=== PATIENT | female | born 1945 | race Caucasian/White ===

== ENCOUNTER 2017-06-08 12:54 | Emergency (ER) | payer MEDICARE, OTHER ==
[2017-06-08] MEDS: KETOROLAC 15 MG INJ IV (15:20)
[2017-06-08] MEDS: ONDANSETRON 4 MG INJ IV (15:20)
[2017-06-08] MEDS: SOD CHLORIDE 0.9% 500 ML IV (15:21)
[2017-06-08 15:35] LABS: ADD MAN DIFF? NO
[2017-06-08 15:41] LABS: WHITE BLOOD COUNT 8.4 10^3/ul (4.8-10.8)
[2017-06-08 15:41] LABS: BASOPHILS % 0.4 % (0.0-2.0); EOSINOPHILS # 0.2 10^3/ul (0.0-0.5); EOSINOPHILS % 2.1 % (0.0-7.0); HEMATOCRIT 35.3 % (37.0-47.0); HEMOGLOBIN 11.6 g/dl (12.0-16.0); LYMPHOCYTES # 2.9 10^3/ul (0.8-2.9); LYMPHOCYTES % 34.2 % (15.0-51.0); MEAN CORPUSCULAR HEMOGLOBIN 28.9 pg (29.0-33.0); MEAN CORPUSCULAR HGB CONC 32.9 g/dl (32.0-37.0); MEAN CORPUSCULAR VOLUME 87.8 fl (82.0-101.0); MEAN PLATELET VOLUME 9.4 fl (7.4-10.4); MONOCYTE # 0.7 10^3/ul (0.3-0.9); MONOCYTES % 8.8 % (0.0-11.0); NEUTROPHIL # 4.6 10^3/ul (1.6-7.5); NEUTROPHILS % 54.1 % (39.0-77.0); PLATELET COUNT 317 10^3/UL (140-415); RED BLOOD COUNT 4.02 10^6/ul (4.20-5.40); RED CELL DISTRIBUTION WIDTH 13.3 % (11.5-14.5)
[2017-06-08 15:46] LABS: ADD UMIC YES; UR ASCORBIC ACID NEGATIVE (NEGATIVE); UR BACTERIA FEW /HPF (NONE SEEN); UR BILIRUBIN (Dip) NEGATIVE (NEGATIVE); UR BLOOD (Dip) NEGATIVE (NEGATIVE); UR CLARITY SLIGHTLY CLOUDY (CLEAR); UR COLOR YELLOW (YELLOW); UR GLUCOSE (Dip) 3+ mg/dL (NEGATIVE); UR KETONES (Dip) NEGATIVE (NEGATIVE); UR LEUKOCYTE ESTERASE (Dip) 3+ Leu/ul (NEGATIVE); UR NITRITE (Dip) NEGATIVE (NEGATIVE); UR RBC 2 /HPF (0-5); UR SPECIFIC GRAVITY (Dip) 1.021 (1.003-1.030); UR SQUAMOUS EPITHELIAL CELL FEW /HPF (FEW); UR TOTAL PROTEIN (Dip) NEGATIVE (NEGATIVE); UR UROBILINOGEN (Dip) NEGATIVE (NEGATIVE); UR WBC 42 /HPF (0-5)
[2017-06-08 16:10] LABS: ALANINE AMINOTRANSFERASE 28 IU/L (13-69); ALBUMIN 3.6 g/dl (3.3-4.9); ALBUMIN/GLOBULIN RATIO 1.02; ALKALINE PHOSPHATASE 95 IU/L (42-121); ANION GAP 12 (8-16); ASPARTATE AMINO TRANSFERASE 24 IU/L (15-46); BILIRUBIN,INDIRECT 0.1 mg/dl (0-1.1); BILIRUBIN,TOTAL 0.1 mg/dl (0.2-1.3); BLOOD UREA NITROGEN 27 mg/dl (7-20); CALCIUM 9.5 mg/dl (8.4-10.2); CARBON DIOXIDE 30 mmol/L (21-31); CHLORIDE 101 mmol/L (97-110); CREATININE 0.61 mg/dl (0.44-1.00); GLUCOSE 209 mg/dl (70-220); LIPASE 252 U/L (23-300); POTASSIUM 4.2 mmol/L (3.5-5.1); SODIUM 139 mmol/L (135-144); TOTAL PROTEIN 7.1 g/dl (6.1-8.1)
== END 2017-06-08 17:48 | disposition home or self-care (01) ==
LOC: E/R 12:54
DX: N30.00 Acute cystitis without hematuria (principal); E03.9 Hypothyroidism, unspecified; E11.9 Type 2 diabetes mellitus without complications; Z79.82 Long term (current) use of aspirin; Z79.84 Long term (current) use of oral hypoglycemic drugs; Z96.641 Presence of right artificial hip joint
CPT/HCPCS: 36415; 74176; 80053; 81001; 83690; 85025; 96374; 96375; 99285-25

== ENCOUNTER 2017-06-11 18:55 | Emergency (ER) | payer MEDICARE, OTHER ==
[2017-06-11 21:13] LABS: ADD MAN DIFF? NO
[2017-06-11 21:17] LABS: BASOPHILS % 0.4 % (0.0-2.0); EOSINOPHILS # 0.3 10^3/ul (0.0-0.5); EOSINOPHILS % 3.3 % (0.0-7.0); HEMATOCRIT 35.5 % (37.0-47.0); HEMOGLOBIN 11.6 g/dl (12.0-16.0); LYMPHOCYTES # 2.9 10^3/ul (0.8-2.9); LYMPHOCYTES % 35.4 % (15.0-51.0); MEAN CORPUSCULAR HEMOGLOBIN 28.9 pg (29.0-33.0); MEAN CORPUSCULAR HGB CONC 32.7 g/dl (32.0-37.0); MEAN CORPUSCULAR VOLUME 88.3 fl (82.0-101.0); MEAN PLATELET VOLUME 9.6 fl (7.4-10.4); MONOCYTE # 0.8 10^3/ul (0.3-0.9); MONOCYTES % 9.3 % (0.0-11.0); NEUTROPHIL # 4.2 10^3/ul (1.6-7.5); NEUTROPHILS % 51.4 % (39.0-77.0); PLATELET COUNT 327 10^3/UL (140-415); RED BLOOD COUNT 4.02 10^6/ul (4.20-5.40); RED CELL DISTRIBUTION WIDTH 13.2 % (11.5-14.5)
[2017-06-11 21:17] LABS: WHITE BLOOD COUNT 8.1 10^3/ul (4.8-10.8)
[2017-06-11 21:32] LABS: INR 0.95; PROTIME 12.8 Sec (11.9-14.9)
[2017-06-11 21:33] LABS: PARTIAL THROMBOPLASTIN TIME 27.6 Sec (25.0-35.0)
[2017-06-11 21:36] LABS: ALANINE AMINOTRANSFERASE 27 IU/L (13-69); ALBUMIN 3.6 g/dl (3.3-4.9); ALBUMIN/GLOBULIN RATIO 0.97; ALKALINE PHOSPHATASE 99 IU/L (42-121); ANION GAP 11 (8-16); ASPARTATE AMINO TRANSFERASE 22 IU/L (15-46); BLOOD UREA NITROGEN 25 mg/dl (7-20); CALCIUM 9.4 mg/dl (8.4-10.2); CARBON DIOXIDE 33 mmol/L (21-31); CHLORIDE 103 mmol/L (97-110); GLUCOSE 267 mg/dl (70-220); LIPASE 168 U/L (23-300); POTASSIUM 3.6 mmol/L (3.5-5.1); SODIUM 143 mmol/L (135-144); TOTAL PROTEIN 7.3 g/dl (6.1-8.1)
[2017-06-11] MEDS: ASPIRIN 325 MG TAB PO (22:09)
[2017-06-11] MEDS: SOD CHLORIDE 0.9% 1,000 ML IV (22:09)
[2017-06-11 22:16] LABS: B-TYPE NATRIURETIC PEPTIDE 61 PG/ML (0-125); TROPONIN-I < 0.012 ng/ml (0.00-0.12)
[2017-06-11] MEDS: VANCOMYCIN 1.25 GM in SOD CHLORIDE 0.9% 250 ML IVPB (23:20)
[2017-06-12] MEDS: KETOROLAC 15 MG INJ IV (00:13)
== END 2017-06-12 02:28 | disposition home or self-care (01) ==
LOC: E/R 06-12 02:28
DX: L03.115 Cellulitis of right lower limb (principal); L03.116 Cellulitis of left lower limb; E11.65 Type 2 diabetes mellitus with hyperglycemia; D64.9 Anemia, unspecified; E03.9 Hypothyroidism, unspecified; R07.9 Chest pain, unspecified; Z79.84 Long term (current) use of oral hypoglycemic drugs; Z79.82 Long term (current) use of aspirin; Z96.641 Presence of right artificial hip joint
CPT/HCPCS: 36415; 71045; 80053; 83690; 83880; 84484; 85025; 85610; 85730; 87040; 93005; 93970; 96374; 96375; 99285-25

== ENCOUNTER 2018-05-03 14:19 | Inpatient (IN) | payer MEDICARE, OTHER ==
[2018-05-03] MEDS: ONDANSETRON 4 MG INJ IV ×2 (15:57→19:40)
[2018-05-03] MEDS: HYDROmorphONE 2 MG/ML SYG IV (15:57)
[2018-05-03] MEDS: morphine 4 MG/ML VIAL IV (19:40)
[2018-05-03] MEDS ORDERED: ACETAMINOPHEN 325 MG TAB PO ×2 (21:00→23:30)
[2018-05-03] MEDS ORDERED: ONDANSETRON 4 MG INJ IV ×2 (21:00→23:30)
[2018-05-03 21:09] LABS: ADD MAN DIFF? NO
[2018-05-03 21:48] LABS: ANION GAP 11 (5-13); BLOOD UREA NITROGEN 28 mg/dl (7-20); CARBON DIOXIDE 29 mmol/L (21-31); CHLORIDE 99 mmol/L (97-110); CREATININE 0.68 mg/dl (0.44-1.00); GLUCOSE 250 mg/dl (70-220); POTASSIUM 3.8 mmol/L (3.5-5.1); SODIUM 139 mmol/L (135-144)
[2018-05-03 21:50] LABS: BASOPHILS % 0.3 % (0.0-2.0); EOSINOPHILS % 0.1 % (0.0-7.0); HEMOGLOBIN 10.8 g/dl (12.0-16.0); LYMPHOCYTES # 1.5 10^3/ul (0.8-2.9); MEAN CORPUSCULAR HEMOGLOBIN 28.6 pg (29.0-33.0); MEAN CORPUSCULAR HGB CONC 31.8 g/dl (32.0-37.0); MEAN CORPUSCULAR VOLUME 90.2 fl (82.0-101.0); MEAN PLATELET VOLUME 9.6 fl (7.4-10.4); MONOCYTE # 1.2 10^3/ul (0.3-0.9); NEUTROPHILS % 74.2 % (39.0-77.0); PLATELET COUNT 261 10^3/UL (140-415); RED BLOOD COUNT 3.77 10^6/ul (4.20-5.40); RED CELL DISTRIBUTION WIDTH 13.4 % (11.5-14.5)
[2018-05-03 21:50] LABS: WHITE BLOOD COUNT 10.8 10^3/ul (4.8-10.8)
[2018-05-03] MEDS ORDERED: HYDROCODONE/APAP (5/325) TAB PO (23:30)
[2018-05-03] MEDS ORDERED: GLUCOSE GEL 15 GRAM TUBE BUCCAL (23:45)
[2018-05-03] MEDS ORDERED: GLUCAGON 1 MG INJ IM (23:45)
[2018-05-03] MEDS ORDERED: DEXTROSE 50% 50 ML SYRINGE IV ×2 (23:45)
[2018-05-03] MEDS ORDERED: GLUCOSE GEL 15 GRAM TUBE PO ×2 (23:45)
[2018-05-04] MEDS: SOD CHLORIDE 0.9% 1,000 ML IV (00:19)
[2018-05-04] MEDS: KETOROLAC 30 MG INJ IV ×4 (00:20→21:22)
[2018-05-04] MEDS: ACCU-CHEK XX (02:00)
[2018-05-04] MEDS ORDERED: PANTOPRAZOLE 40 MG INJ IV (06:00)
[2018-05-04 07:29] LABS: HEMOGLOBIN A1C 7.1 % (0-5.9)
[2018-05-04] MEDS: FAMOTIDINE 20 MG INJ IV (08:23)
[2018-05-04] MEDS: INSULIN ASPART [NOVOLOG] 3 ML PEN SC ×4 (08:32→20:35)
[2018-05-04] MEDS ORDERED: morphine 2 MG INJ IV (13:30)
[2018-05-04] MEDS: ALBUTEROL/IPRATROPIUM (NEB) 3 ML AMP HHN ×2 (14:00→21:02)
[2018-05-04] MEDS: CYANOCOBALAMIN 500 MCG TAB PO (15:18)
[2018-05-04] MEDS: FUROSEMIDE 20 MG TAB PO (15:19)
[2018-05-04] MEDS: MULTIVITAMINS THERAPEUTIC TAB PO (15:19)
[2018-05-04] MEDS: METHOCARBAMOL 500 MG TAB PO ×2 (15:19→21:30)
[2018-05-04] MEDS: FOLIC ACID 0.4 MG TAB PO (15:19)
[2018-05-04] MEDS: CHOLECALCIFEROL 1,000 UNIT TAB PO (15:19)
[2018-05-04] MEDS: ASPIRIN (EC) 81 MG TAB PO (15:19)
[2018-05-04] MEDS: AZITHROMYCIN 500 MG TAB PO (15:19)
[2018-05-04] MEDS: traMADol 50 MG TAB PO (17:36)
[2018-05-05] MEDS: ACCU-CHEK XX (01:42)
[2018-05-05] MEDS: ALBUTEROL/IPRATROPIUM (NEB) 3 ML AMP HHN ×4 (01:44→19:41)
[2018-05-05] MEDS: METHOCARBAMOL 500 MG TAB PO ×3 (05:45→20:52)
[2018-05-05] MEDS: KETOROLAC 30 MG INJ IV ×2 (05:49→13:24)
[2018-05-05] MEDS: traMADol 50 MG TAB PO ×5 (06:00→23:39)
[2018-05-05] MEDS: LEVOTHYROXINE 88 MCG TAB PO (06:06)
[2018-05-05] MEDS: INSULIN ASPART [NOVOLOG] 3 ML PEN SC ×4 (08:35→20:59)
[2018-05-05] MEDS: ASPIRIN (EC) 81 MG TAB PO (08:36)
[2018-05-05] MEDS: FUROSEMIDE 20 MG TAB PO (08:36)
[2018-05-05] MEDS: MULTIVITAMINS THERAPEUTIC TAB PO (08:36)
[2018-05-05] MEDS: FOLIC ACID 0.4 MG TAB PO (08:36)
[2018-05-05] MEDS: CHOLECALCIFEROL 1,000 UNIT TAB PO (08:36)
[2018-05-05] MEDS: CYANOCOBALAMIN 500 MCG TAB PO (08:37)
[2018-05-05] MEDS: FAMOTIDINE 20 MG INJ IV (08:37)
[2018-05-05] MEDS: PROMETHAZINE/CODEINE 5ML CUP PO (20:52)
[2018-05-06] MEDS: morphine 2 MG INJ IV (01:59)
[2018-05-06] MEDS: ALBUTEROL/IPRATROPIUM (NEB) 3 ML AMP HHN ×3 (02:00→14:00)
[2018-05-06] MEDS: ACCU-CHEK XX (02:00)
[2018-05-06 06:21] LABS: MAGNESIUM 2.3 mg/dl (1.7-2.5)
[2018-05-06 06:21] LABS: PHOSPHORUS 4.4 mg/dl (2.5-4.9)
[2018-05-06 06:27] LABS: ANION GAP 6 (5-13); BLOOD UREA NITROGEN 32 mg/dl (7-20); CALCIUM 8.6 mg/dl (8.4-10.2); CARBON DIOXIDE 29 mmol/L (21-31); CHLORIDE 107 mmol/L (97-110); CREATININE 0.78 mg/dl (0.44-1.00); GLUCOSE 134 mg/dl (70-220); POTASSIUM 4.2 mmol/L (3.5-5.1); SODIUM 142 mmol/L (135-144)
[2018-05-06] MEDS: METHOCARBAMOL 500 MG TAB PO ×2 (06:31→13:50)
[2018-05-06] MEDS: traMADol 50 MG TAB PO ×2 (06:31→12:00)
[2018-05-06] MEDS: LEVOTHYROXINE 88 MCG TAB PO (06:31)
[2018-05-06] MEDS: INSULIN ASPART [NOVOLOG] 3 ML PEN SC ×2 (08:31→12:00)
[2018-05-06] MEDS: CYANOCOBALAMIN 500 MCG TAB PO (08:35)
[2018-05-06] MEDS: FAMOTIDINE 20 MG INJ IV (08:35)
[2018-05-06] MEDS: CHOLECALCIFEROL 1,000 UNIT TAB PO (08:35)
[2018-05-06] MEDS: FOLIC ACID 0.4 MG TAB PO (08:35)
[2018-05-06] MEDS: FUROSEMIDE 20 MG TAB PO (08:36)
[2018-05-06] MEDS: ASPIRIN (EC) 81 MG TAB PO (08:36)
[2018-05-06] MEDS: KETOROLAC 30 MG INJ IV (08:48)
[2018-05-06] MEDS: MULTIVITAMINS THERAPEUTIC TAB PO (09:26)
[2018-05-07] MEDS ORDERED: FAMOTIDINE 20 MG TAB PO (09:00)
== END 2018-05-06 15:20 | DRG 552 ==
LOC: E/R 14:19 → 2NE 20:35
DX: M48.02 Spinal stenosis, cervical region (principal); M48.04 Spinal stenosis, thoracic region; E86.0 Dehydration; Z96.641 Presence of right artificial hip joint; G47.33 Obstructive sleep apnea (adult) (pediatric); F32.9 Major depressive disorder, single episode, unspecified; F41.9 Anxiety disorder, unspecified; E78.5 Hyperlipidemia, unspecified; E03.9 Hypothyroidism, unspecified; M79.7 Fibromyalgia; E11.9 Type 2 diabetes mellitus without complications; J40 Bronchitis, not specified as acute or chronic; I10 Essential (primary) hypertension; M54.30 Sciatica, unspecified side; M19.90 Unspecified osteoarthritis, unspecified site; M43.10 Spondylolisthesis, site unspecified; Z79.4 Long term (current) use of insulin; Z79.84 Long term (current) use of oral hypoglycemic drugs; Z79.82 Long term (current) use of aspirin
CPT/HCPCS: 72040; 72072; 72125; 72128; 72141; 72146; 80048; 82962; 83036; 83735; 84100; 85025; 94640; 94664; 96374; 96375; 96376; 97110; 97116; 97162; 97165; 97530; 99217; 99285-25

== ENCOUNTER 2018-05-06 15:31 | Inpatient (IN) | payer MEDICARE, OTHER ==
[2018-05-06] MEDS ORDERED: PENDING SANTYL ORDER FOR WOUND CARE XX (16:00)
[2018-05-06] MEDS ORDERED: LACTULOSE 30ML CUP PO (16:30)
[2018-05-06] MEDS ORDERED: BISACODYL 10 MG SUPP PR (16:30)
[2018-05-06] MEDS ORDERED: ACETAMINOPHEN 325 MG TAB PO ×2 (16:30→19:30)
[2018-05-06] MEDS ORDERED: MAGNESIUM HYDROXIDE 30ML CUP PO (16:30)
[2018-05-06] MEDS ORDERED: ONDANSETRON 4 MG INJ IV (19:30)
[2018-05-06] MEDS ORDERED: morphine 2 MG INJ IV (19:30)
[2018-05-06] MEDS: traMADol 50 MG TAB PO (19:30)
[2018-05-06] MEDS: ALBUTEROL/IPRATROPIUM (NEB) 3 ML AMP HHN (20:00)
[2018-05-06] MEDS ORDERED: ZOLPIDEM 5 MG TAB PO (20:00)
[2018-05-06] MEDS ORDERED: DEXTROSE 50% 50 ML SYRINGE IV ×2 (20:00)
[2018-05-06] MEDS ORDERED: GLUCAGON 1 MG INJ IM (20:00)
[2018-05-06] MEDS ORDERED: GLUCOSE GEL 15 GRAM TUBE BUCCAL (20:00)
[2018-05-06] MEDS ORDERED: GLUCOSE GEL 15 GRAM TUBE PO ×2 (20:00)
[2018-05-06] MEDS ORDERED: ACETAMINOPHEN 325/HYDROC 7.5 15 ML CUP PO (20:00)
[2018-05-06] MEDS: INSULIN ASPART [NOVOLOG] 3 ML PEN SC (21:00)
[2018-05-06] MEDS: SENNA TAB PO (21:00)
[2018-05-06] MEDS: DOCUSATE SODIUM 100 MG CAP PO (21:00)
[2018-05-06] MEDS: KETOROLAC 30 MG INJ IV (22:23)
[2018-05-06] MEDS: METHOCARBAMOL 500 MG TAB PO (22:27)
[2018-05-07 00:17] LABS: ADD UMIC YES; UR ASCORBIC ACID NEGATIVE (NEGATIVE); UR BACTERIA FEW /HPF (NONE SEEN); UR BILIRUBIN (Dip) NEGATIVE (NEGATIVE); UR BLOOD (Dip) NEGATIVE (NEGATIVE); UR CALCIUM OXALATE CRYSTAL FEW /HPF (NONE SEEN); UR CLARITY CLOUDY (CLEAR); UR COLOR AMBER (YELLOW); UR GLUCOSE (Dip) NEGATIVE (NEGATIVE); UR KETONES (Dip) NEGATIVE (NEGATIVE); UR LEUKOCYTE ESTERASE (Dip) 3+ Leu/ul (NEGATIVE); UR MUCUS MODERATE /HPF (NONE SEEN); UR NITRITE (Dip) NEGATIVE (NEGATIVE); UR NONSQUAMOUS EPITHELIAL CELL 1 /HPF (NONE SEEN); UR RBC 7 /HPF (0-5); UR SPECIFIC GRAVITY (Dip) 1.027 (1.003-1.030); UR SQUAMOUS EPITHELIAL CELL MANY /HPF (FEW); UR TOTAL PROTEIN (Dip) NEGATIVE (NEGATIVE); UR UROBILINOGEN (Dip) NEGATIVE (NEGATIVE); UR WBC 57 /HPF (0-5)
[2018-05-07] MEDS: ALBUTEROL/IPRATROPIUM (NEB) 3 ML AMP HHN ×5 (01:42→19:43)
[2018-05-07] MEDS: ACCU-CHEK XX (02:00)
[2018-05-07] MEDS: METHOCARBAMOL 500 MG TAB PO ×3 (05:49→21:07)
[2018-05-07] MEDS: traMADol 50 MG TAB PO ×4 (05:50→17:33)
[2018-05-07 07:08] LABS: ADD MAN DIFF? NO
[2018-05-07 07:16] LABS: BASOPHILS % 0.6 % (0.0-2.0); EOSINOPHILS # 0.4 10^3/ul (0.0-0.5); EOSINOPHILS % 6.7 % (0.0-7.0); HEMATOCRIT 33.7 % (37.0-47.0); HEMOGLOBIN 10.8 g/dl (12.0-16.0); LYMPHOCYTES # 1.9 10^3/ul (0.8-2.9); LYMPHOCYTES % 34.7 % (15.0-51.0); MEAN CORPUSCULAR HEMOGLOBIN 28.6 pg (29.0-33.0); MEAN CORPUSCULAR VOLUME 89.2 fl (82.0-101.0); MEAN PLATELET VOLUME 9.4 fl (7.4-10.4); MONOCYTE # 0.4 10^3/ul (0.3-0.9); MONOCYTES % 8.2 % (0.0-11.0); NEUTROPHIL # 2.7 10^3/ul (1.6-7.5); NEUTROPHILS % 49.4 % (39.0-77.0); PLATELET COUNT 298 10^3/UL (140-415); RED BLOOD COUNT 3.78 10^6/ul (4.20-5.40); RED CELL DISTRIBUTION WIDTH 13.2 % (11.5-14.5)
[2018-05-07 07:16] LABS: WHITE BLOOD COUNT 5.4 10^3/ul (4.8-10.8)
[2018-05-07 07:49] LABS: ALANINE AMINOTRANSFERASE 15 IU/L (13-69); ALBUMIN 3.2 g/dl (3.3-4.9); ALBUMIN/GLOBULIN RATIO 0.96; ALKALINE PHOSPHATASE 85 IU/L (42-121); ANION GAP 5 (5-13); ASPARTATE AMINO TRANSFERASE 19 IU/L (15-46); BILIRUBIN,INDIRECT 0.3 mg/dl (0-1.1); BILIRUBIN,TOTAL 0.3 mg/dl (0.2-1.3); BLOOD UREA NITROGEN 33 mg/dl (7-20); CALCIUM 8.8 mg/dl (8.4-10.2); CARBON DIOXIDE 27 mmol/L (21-31); CHLORIDE 108 mmol/L (97-110); CREATININE 0.68 mg/dl (0.44-1.00); GLUCOSE 130 mg/dl (70-220); POTASSIUM 4.4 mmol/L (3.5-5.1); SODIUM 140 mmol/L (135-144); TOTAL PROTEIN 6.5 g/dl (6.1-8.1)
[2018-05-07] MEDS: INSULIN ASPART [NOVOLOG] 3 ML PEN SC ×4 (08:29→21:00)
[2018-05-07] MEDS: CHOLECALCIFEROL 1,000 UNIT TAB PO (08:52)
[2018-05-07] MEDS: FOLIC ACID 0.4 MG TAB PO (08:53)
[2018-05-07] MEDS: HYDROCHLOROTHIAZIDE 25 MG TAB PO (08:53)
[2018-05-07] MEDS: CYANOCOBALAMIN 500 MCG TAB PO (08:54)
[2018-05-07] MEDS: FUROSEMIDE 20 MG TAB PO (08:54)
[2018-05-07] MEDS: DOCUSATE SODIUM 100 MG CAP PO ×2 (08:54→20:22)
[2018-05-07] MEDS: MULTIVITAMINS THERAPEUTIC TAB PO (08:54)
[2018-05-07] MEDS: ASPIRIN (EC) 81 MG TAB PO (08:54)
[2018-05-07] MEDS: LOSARTAN 50 MG TAB PO (08:57)
[2018-05-07] MEDS: FAMOTIDINE 20 MG INJ IV (08:58)
[2018-05-07] MEDS ORDERED: ASPIRIN (EC) 81 MG TAB PO (09:00)
[2018-05-07] MEDS: ENOXAPARIN 40 MG/0.4 ML SYG SC (09:00)
[2018-05-07] MEDS: AMLODIPINE 5 MG TAB PO (11:58)
[2018-05-07] MEDS: CEFTRIAXONE 1 GM/50 ML (PMX) 50 ML IVPB (11:59)
[2018-05-07] MEDS: LEVOTHYROXINE 88 MCG TAB PO (20:21)
[2018-05-07] MEDS: SENNA TAB PO (21:00)
[2018-05-08] MEDS: ALBUTEROL/IPRATROPIUM (NEB) 3 ML AMP HHN ×4 (01:10→20:02)
[2018-05-08] MEDS: ACCU-CHEK XX (02:00)
[2018-05-08] MEDS: traMADol 50 MG TAB PO ×4 (06:00→18:00)
[2018-05-08] MEDS: METHOCARBAMOL 500 MG TAB PO ×3 (06:03→20:11)
[2018-05-08 07:35] LABS: ADD MAN DIFF? NO
[2018-05-08 07:38] LABS: WHITE BLOOD COUNT 5.7 10^3/ul (4.8-10.8)
[2018-05-08 07:38] LABS: BASOPHILS % 0.4 % (0.0-2.0); EOSINOPHILS # 0.3 10^3/ul (0.0-0.5); EOSINOPHILS % 4.9 % (0.0-7.0); HEMATOCRIT 35.4 % (37.0-47.0); HEMOGLOBIN 11.2 g/dl (12.0-16.0); LYMPHOCYTES # 1.8 10^3/ul (0.8-2.9); LYMPHOCYTES % 32.2 % (15.0-51.0); MEAN CORPUSCULAR HEMOGLOBIN 27.9 pg (29.0-33.0); MEAN CORPUSCULAR HGB CONC 31.6 g/dl (32.0-37.0); MEAN CORPUSCULAR VOLUME 88.1 fl (82.0-101.0); MEAN PLATELET VOLUME 9.4 fl (7.4-10.4); MONOCYTE # 0.5 10^3/ul (0.3-0.9); MONOCYTES % 8.1 % (0.0-11.0); NEUTROPHIL # 3.1 10^3/ul (1.6-7.5); PLATELET COUNT 340 10^3/UL (140-415); RED BLOOD COUNT 4.02 10^6/ul (4.20-5.40); RED CELL DISTRIBUTION WIDTH 13.1 % (11.5-14.5)
[2018-05-08] MEDS: INSULIN ASPART [NOVOLOG] 3 ML PEN SC ×4 (07:52→20:20)
[2018-05-08 08:07] LABS: ANION GAP 7 (5-13); BLOOD UREA NITROGEN 23 mg/dl (7-20); CALCIUM 9.1 mg/dl (8.4-10.2); CARBON DIOXIDE 26 mmol/L (21-31); CHLORIDE 108 mmol/L (97-110); CREATININE 0.61 mg/dl (0.44-1.00); GLUCOSE 135 mg/dl (70-220); POTASSIUM 4.3 mmol/L (3.5-5.1); SODIUM 141 mmol/L (135-144)
[2018-05-08] MEDS: CYANOCOBALAMIN 500 MCG TAB PO (08:42)
[2018-05-08] MEDS: HYDROCHLOROTHIAZIDE 25 MG TAB PO (08:42)
[2018-05-08] MEDS: CHOLECALCIFEROL 1,000 UNIT TAB PO (08:43)
[2018-05-08] MEDS: ASPIRIN (EC) 81 MG TAB PO (08:43)
[2018-05-08] MEDS: FUROSEMIDE 20 MG TAB PO (08:43)
[2018-05-08] MEDS: DOCUSATE SODIUM 100 MG CAP PO ×2 (08:43→20:22)
[2018-05-08] MEDS: MULTIVITAMINS THERAPEUTIC TAB PO (08:43)
[2018-05-08] MEDS: FOLIC ACID 0.4 MG TAB PO (08:44)
[2018-05-08] MEDS: AMLODIPINE 5 MG TAB PO (08:45)
[2018-05-08] MEDS: LOSARTAN 50 MG TAB PO (08:45)
[2018-05-08] MEDS: ENOXAPARIN 40 MG/0.4 ML SYG SC (08:46)
[2018-05-08] MEDS: FAMOTIDINE 20 MG INJ IV ×2 (08:47→08:58)
[2018-05-08] MEDS: CEFTRIAXONE 1 GM/50 ML (PMX) 50 ML IVPB (11:57)
[2018-05-08] MEDS: LEVOTHYROXINE 88 MCG TAB PO (20:11)
[2018-05-08] MEDS: SENNA TAB PO (20:22)
[2018-05-09] MEDS: ACCU-CHEK XX (02:00)
[2018-05-09] MEDS: ALBUTEROL/IPRATROPIUM (NEB) 3 ML AMP HHN ×4 (02:00→19:25)
[2018-05-09] MEDS: traMADol 50 MG TAB PO ×2 (06:00)
[2018-05-09] MEDS: METHOCARBAMOL 500 MG TAB PO (06:00)
[2018-05-09] MEDS ORDERED: traMADol 50 MG TAB PO ×2 (07:00→07:30)
[2018-05-09] MEDS ORDERED: DOCUSATE SODIUM 100 MG CAP PO (07:00)
[2018-05-09] MEDS: INSULIN ASPART [NOVOLOG] 3 ML PEN SC ×4 (07:35→20:19)
[2018-05-09] MEDS: FAMOTIDINE 20 MG TAB PO ×2 (08:26→08:54)
[2018-05-09] MEDS: FOLIC ACID 0.4 MG TAB PO (08:49)
[2018-05-09] MEDS: CYANOCOBALAMIN 500 MCG TAB PO (08:50)
[2018-05-09] MEDS: LOSARTAN 50 MG TAB PO (08:51)
[2018-05-09] MEDS: ASPIRIN (EC) 81 MG TAB PO (08:51)
[2018-05-09] MEDS: MULTIVITAMINS THERAPEUTIC TAB PO (08:52)
[2018-05-09] MEDS: HYDROCHLOROTHIAZIDE 25 MG TAB PO (08:52)
[2018-05-09] MEDS: CHOLECALCIFEROL 1,000 UNIT TAB PO (08:52)
[2018-05-09] MEDS: FUROSEMIDE 20 MG TAB PO (08:52)
[2018-05-09] MEDS: AMLODIPINE 5 MG TAB PO (08:52)
[2018-05-09] MEDS: ENOXAPARIN 40 MG/0.4 ML SYG SC (08:53)
[2018-05-09] MEDS: CEFTRIAXONE 1 GM/50 ML (PMX) 50 ML IVPB (11:05)
[2018-05-09] MEDS ORDERED: METHOCARBAMOL 500 MG TAB PO (14:00)
[2018-05-09] MEDS: AMOXICILLIN 500 MG CAP PO ×2 (14:49→21:03)
[2018-05-09] MEDS: LEVOTHYROXINE 88 MCG TAB PO (20:07)
[2018-05-09] MEDS: SENNA TAB PO (20:22)
[2018-05-10] MEDS: ALBUTEROL/IPRATROPIUM (NEB) 3 ML AMP HHN ×2 (01:54→07:30)
[2018-05-10] MEDS: ACCU-CHEK XX (02:00)
[2018-05-10] MEDS: AMOXICILLIN 500 MG CAP PO (05:03)
[2018-05-10] MEDS: INSULIN ASPART [NOVOLOG] 3 ML PEN SC (07:54)
[2018-05-10] MEDS: LOSARTAN 50 MG TAB PO (08:52)
[2018-05-10] MEDS: FAMOTIDINE 20 MG TAB PO (08:53)
[2018-05-10] MEDS: HYDROCHLOROTHIAZIDE 25 MG TAB PO (08:53)
[2018-05-10] MEDS: AMLODIPINE 5 MG TAB PO (08:53)
[2018-05-10] MEDS: CYANOCOBALAMIN 500 MCG TAB PO (08:53)
[2018-05-10] MEDS: FOLIC ACID 0.4 MG TAB PO (08:53)
[2018-05-10] MEDS: CHOLECALCIFEROL 1,000 UNIT TAB PO (08:54)
[2018-05-10] MEDS: MULTIVITAMINS THERAPEUTIC TAB PO (08:54)
[2018-05-10] MEDS: ASPIRIN (EC) 81 MG TAB PO (08:54)
[2018-05-10] MEDS: FUROSEMIDE 20 MG TAB PO (08:54)
[2018-05-10] MEDS: ENOXAPARIN 40 MG/0.4 ML SYG SC (09:00)
== END 2018-05-10 11:23 | disposition home health service (06) | DRG 57 ==
LOC: VRC 15:31
PROC: F07Z9FZ Gait Training/Functional Ambulation Treatment using Assistive, Adaptive, Supportive or Protective Equipment (ICD-10-PCS; principal; 2018-05-06)
PROC: F07Z8FZ Transfer Training Treatment using Assistive, Adaptive, Supportive or Protective Equipment (ICD-10-PCS; 2018-05-06)
PROC: F07Z5FZ Bed Mobility Treatment using Assistive, Adaptive, Supportive or Protective Equipment (ICD-10-PCS; 2018-05-06)
PROC: F08Z2FZ Grooming/Personal Hygiene Treatment using Assistive, Adaptive, Supportive or Protective Equipment (ICD-10-PCS; 2018-05-06)
PROC: F08Z0FZ Bathing/Showering Techniques Treatment using Assistive, Adaptive, Supportive or Protective Equipment (ICD-10-PCS; 2018-05-06)
PROC: F08Z1FZ Dressing Techniques Treatment using Assistive, Adaptive, Supportive or Protective Equipment (ICD-10-PCS; 2018-05-06)
DX: G95.0 Syringomyelia and syringobulbia (principal); N39.0 Urinary tract infection, site not specified; M48.03 Spinal stenosis, cervicothoracic region; E11.9 Type 2 diabetes mellitus without complications; I10 Essential (primary) hypertension; E66.9 Obesity, unspecified; M79.7 Fibromyalgia; Z68.39 Body mass index [BMI] 39.0-39.9, adult; E03.9 Hypothyroidism, unspecified; E78.5 Hyperlipidemia, unspecified; E86.0 Dehydration; G47.33 Obstructive sleep apnea (adult) (pediatric); M43.10 Spondylolisthesis, site unspecified; E78.00 Pure hypercholesterolemia, unspecified; B95.2 Enterococcus as the cause of diseases classified elsewhere; Z79.82 Long term (current) use of aspirin
CPT/HCPCS: 80048; 80053; 81001; 82962; 84443; 85025; 87081; 87086; 94640; 94664; 97110; 97116; 97163; 97167; 97530; 97535